=== PATIENT | male | born 1990 | race Caucasian/White ===

== ENCOUNTER 2023-04-05 21:19 | Emergency (ER) | payer OTHER, SELFPAY ==
[2023-04-05] VITALS (17 sets, daily range): BP systolic 138–199; BP diastolic 78–126; PULSE 77–100; RESP 11–34; TEMP 36.1; O2SAT 97–100
--- NOTE | ~2023-04-05 | CT_ITS ---
EXAMINATION: CT abdomen pelvis w con INDICATION: Abdominal pain TECHNIQUE: Computed tomographic images of the abdomen and pelvis were obtained after the administrati on of 100 cc of Omnipaque 350 intravenous contrast. The dose-length product (DLP) was 1567.59 mGy-cm. Automated exposure control and iterative reconstruction technique were employed. COMPARISON: None available FINDINGS: There is a 10 mm nodule of the right lower lobe. The heart size is normal. Stones are prese nt in the nondistended gallbladder. The liver, spleen, pancreas, and adrenal glands are normal. The k idneys are unremarkable. No pathologically enlarged abdominal or pelvic lymph nodes are identified. N o free intraperitoneal gas or evidence of bowel obstruction. The appendix is normal. There is a small umbilical hernia containing fat. Mild lumbar spondylosis is noted. IMPRESSION: 1. No CT correlate for the patient's symptoms. Reviewed, dictated and finalized at location F. [facility] [employer] DIRECTOR
--- NOTE | 2023-04-05 21:20 | ECG_ITS ---
Measurements Intervals [place] Rate: 94 P: 63 MT: 188 QRS: 35 QRSD: 101 T: 22 QT: 351 QTc: 440 Interpretive Statements SINUS RHYTHM BASELINE ARTIFACT- I, II, III, AVR, AVL, AVF, V1, V3 NORMAL ECG NO PREVIOUS ECG AVAILABLE FOR COMPARISON Electronically Signed On 04-06-2023 6:44:51 [employer] MACHINE by Rupert Colon D.O.
[2023-04-05] MEDS: ONDANSETRON INJ 4 MG/2 ML VIAL IV PUSH (21:51)
[2023-04-05] MEDS: MORPHINE SULFATE (*CRX) 4 MG/ML INJ IV PUSH (21:51)
[2023-04-05 22:05] LABS: Basophils Absolute Auto 0.04 K/mm3 (0.00-0.10); Basophils Percent Auto 0.4 % (0.0-1.0); Eosinophils Absolute Auto 0.12 K/mm3 (0.02-0.50); Eosinophils Percent Auto 1.3 % (1.0-6.0); Hematocrit 40.4 % (40.0-54.0); Hemoglobin 14.3 g/dL (14.0-18.0); Immature Granulocyte Absolute 0.04 K/mm3 (0.00-0.00); Immature Granulocyte Percent A 0.4 % (0.0-0.0); Lymphocytes Absolute Auto 2.49 K/mm3 (1.10-4.50); Lymphocytes Percent Auto 27.5 % (18.0-42.0); Mean Corpuscular HGB Conc 35.4 g/dL (32.0-36.0); Mean Corpuscular Hemoglobin 30.2 pg (27.0-31.0); Mean Corpuscular Volume 85.4 fL (78.0-102.0); Mean Platelet Volume 11.6 fl (8.7-11.0); Monocytes Absolute Auto 0.59 K/mm3 (0.10-0.90); Monocytes Percent Auto 6.5 % (2.0-11.0); Neutrophils Absolute Auto 5.8 K/mm3 (1.7-7.2); Neutrophils Percent Auto 63.9 % (50.0-70.0); Platelet Count Result 180 K/mm3 (150-420); Red Blood Count 4.73 M/mm3 (4.70-6.10); Red Cell Distribution Width 11.9 % (11.6-14.4)
--- NOTE | 2023-04-05 22:06 | ED.ABDPAIN ---
HPI - Abdominal Pain General Chief Complaint: Abdominal Pain Stated Complaint: epigastric chest area pain Time Seen by Provider: 04/05/23 21:30 Source: patient and family Mode of arrival: ambulatory Limitations: no limitations History of Present Illness HPI narrative: This is a 32-year-old male with a history of hypertension presents with abdominal pain localizing to the epigastric area some nausea with no vomiting, denies any fever chills denies any diarrhea or constipation no flank pain. The patient states that pain started earlier today did not take anything for his discomfort. There is no dysuria no chest pain no shortness of breath. MD elicited complaint: abdominal pain Pertinent past history: none Onset (ago): hour(s) Pain Consistency: constant Location: epigastric Severity: severe Pain scale (0-10): 10 Quality: aching Migration to: no migration Exacerbating factors: nothing Relieving factors: nothing Associated symptoms: nausea Related Data Allergies Allergy/AdvReac Type Severity Reaction Status Date / Time Sulfa (Sulfonamide Allergy Unknown Verified 04/05/23 21:30 Antibiotics) Review of Systems Review of Systems: All systems reviewed & are unremarkable except as noted in HPI and below PMFSH Past Medical History Medical History HTN (hypertension) Exam Const: General: healthy appearing and no acute distress Nutritional Appearance: well nourished Orientation/consciousness: patient oriented x3 Limitations: no limitations Neck: Neck: normal visual inspection, no lymphadenopathy and no meningeal signs Chest: Chest palpation & inspection: normal inspection of the chest Resp: Effort & Inspection: normal respiratory effort Auscultation: clear to auscultation bilaterally Cardio: Rate: regular rate Rhythm: regular rhythm GI: GI Palp: Yes Soft to palpation and Yes Tenderness to palpation present (GI) : General: Yes bladder normal to palpation Back/Spine/Pelvis: Back: no CVA tenderness Skin: General skin exam: normal color Rashes: no rashes Neuro: General: patient oriented x3, moves all extremities, no meningeal signs and no focal motor deficits Psych: Mental Status: mental status grossly normal Affect: normal affect Course Course Emergency Course: IV fluids started with normal saline, patient received 4mg IV morphine for pain control and Zofran and a dose of 40mg of IV Protonix. Labs performed and reviewed as well as urinalysis, CT scan performed findings. Morphine was given after reassessment patient's pain level has markedly improved. Vital Signs Vital signs: Vital Signs Temperature 36.1 C L 04/05/23 21:19 Pulse Rate 95 04/05/23 21:19 Respiratory Rate 22 H 04/05/23 21:19 Blood Pressure 174/112 H 04/05/23 21:19 Pulse Oximetry 100 04/05/23 21:19 Oxygen Delivery Room Air 04/05/23 21:19 Temperature 36.1 C L 04/05/23 21:19 Pulse Rate 95 04/05/23 21:19 Respiratory Rate 22 H 04/05/23 21:19 Blood Pressure 174/112 H 04/05/23 21:19 Pulse Oximetry 100 04/05/23 21:19 Oxygen Delivery Room Air 04/05/23 21:19 MDM - Abdominal Pain Lab Data 04/05/23 22:02 04/05/23 22:02 Labs: Lab Results 04/05/23 Range/Units 22:02 WBC Pending RBC Pending Hgb Pending Hct Pending MCV Pending MCH Pending MCHC Pending RDW Pending Plt Count Pending MPV Pending Immature Gran % (Auto) Pending Neut % (Auto) Pending Lymph % (Auto) Pending [place] % (Auto) Pending Eos % (Auto) Pending Baso % (Auto) Pending Lymph # (Auto) Pending [place] # (Auto) Pending Eos # (Auto) Pending Baso # (Auto) Pending Abs Immat Gran (auto) Pending Absolute Neuts (auto) Pending Absolute Nucleated RBC Pending Nucleated RBC % Pending PT Pending INR Pending APTT Pending Sodium Pending Potassium Pending Chloride
[2023-04-05 22:20] LABS: INR 0.9; Partial Thromboplastin Time 25.6 SEC (23.90-30.70); Prothrombin Time 10.1 Seconds (9.50-12.10)
[2023-04-05] MEDS: SODIUM CHLORIDE 0.9% IV 1,000 ML 999 ML IV CONT (22:24)
[2023-04-05 22:28] LABS: Lactic Acid Reflex 1.2 mmol/L (0.4-2.0)
--- NOTE | 2023-04-05 22:31 | PC.NURSE ---
PT IS LYING ON STRETCHER WITH LIGHTS OFF AND IVF INFUSING ORDERED WITHOUT DIFFICULTY. PT IS AWAITING RESULTS AND CT AT THIS TIME. SIG OTHER AT BEDSIDE. NAD NOTED. PT REPORTS PAIN HAS GREATLY IMPROVED TO 2/10. VSS PER MONITOR. WILL CONTINUE TO MONITOR.
[2023-04-05 22:34] LABS: Alanine Aminotransferase 172 U/L (16-63); Albumin Level 3.7 g/dL (3.4-5.0); Alkaline Phosphatase 83 U/L (46-116); Anion Gap 10 mmol/L (8-16); Aspartate Amino Transferase 169 U/L (15-37); Bilirubin,Total 0.5 mg/dL (0.00-1.00); Blood Urea Nitrogen 21 mg/dL (7-18); Calcium 8.6 mg/dL (8.5-10.1); Carbon Dioxide 27 mmol/L (21-32); Chloride 100 mmol/L (98-108); Estimated CRCL calculation 103 ml/min; Estimated Glomerular Filt Rate > 60; Glucose 152 mg/dL (70-99); Lipase 57 U/L (16-77); Osmolality Calculated 290 mOsm/kg (285-295); Potassium 3.6 mmol/L (3.5-5.1); Sodium 137 mmol/L (136-145); Total Protein 6.9 g/dL (6.4-8.2); Troponin I 6.4 ng/L (0.00-60.4)
[2023-04-05 23:15] LABS: Appearance Urine Clear (Clear); Bilirubin Urine Negative (Negative); Blood Urine Negative (Negative); Color Urine Light Yellow (Yellow); Glucose Urine UA 1+ (Negative); Ketones Urine Negative (Negative); Leukocyte Esterase Ur Negative LEU/UL (Negative); Nitrate Urine Negative (Negative); Protein Urine Negative (Negative); pH Urine 7.5 (5.0-8.0)
--- NOTE | 2023-04-05 23:15 | PC.NURSE ---
pt has returned from ct, provided urine specimen and has returned to stretcher. sig other at bedside. ivf infusing without difficulty. pt reports pain remains, however still at 2/10. will continue to monitor.
[2023-04-05 23:21] LABS: Add Urine Microscopic? YES; Bacteria Urine None seen /hpf; RBC Urine 0-2 /hpf (0-2); Squamous Epithelial Cell Urine None seen /hpf (Few); WBC Urine 0-3 /hpf (0-3)
--- NOTE | 2023-04-12 12:20 | PC.NURSE ---
Final blood culture report, no growth after 5 days, no further action or treatment needed.
== END 2023-04-05 23:45 | disposition home or self-care (01) ==
PROVIDERS: Emergency Provider Emergency Medicine; PCP Family Medicine
DX: R10.11 Right upper quadrant pain (principal); I10 Essential (primary) hypertension
CPT/HCPCS: 36415; 74177; 80053; 81001; 83605; 83690; 84484; 85025; 85610; 85730; 87040; 93005; 96361; 96365; 96375; 99284; C9113; J2270; J2405; J7030; J7060; Q9967